=== PATIENT | female | born 1985 | race African-American/Black ===

== ENCOUNTER 2018-01-09 16:10 | Emergency (ER) | payer OTHER ==
[~2018-01-09] VITALS: Ht 160 cm; Wt 67.6 kg
[~2018-01-09 16:10] MED LIST: PREN-58 PO
[2018-01-09 16:11] VITALS: BP 114/60
== END 2018-01-09 16:51 | disposition home or self-care (01) ==
LOC: ER 16:14
DX: D17.1 Benign lipomatous neoplasm of skin and subcutaneous tissue of trunk (principal)
CPT/HCPCS: A4606; Z7502; Z7610

== ENCOUNTER 2019-07-17 18:51 | Emergency (ER) | payer OTHER ==
[~2019-07-17] VITALS: Ht 160 cm; Wt 66.7 kg
[2019-07-17 19:31] LABS: BASOPHILS % (AUTO) 0.4 % (0.0-2.0); EOSINOPHILS % (AUTO) 0.8 % (0.0-6.0); HEMATOCRIT 36 % (33-45); HEMOGLOBIN 11.7 g/dL (11.5-14.8); LYMPHOCYTES # (AUTO) 1.9 /CMM (0.8-4.8); LYMPHOCYTES % (AUTO) 24.3 % (20.0-44.0); MEAN CORPUSCULAR HGB CONC 33 g/dl (31.0-36.0); MEAN CORPUSCULAR VOLUME 91 fL (82-100); MONOCYTES # (AUTO) 0.7 /CMM (0.1-1.30); MONOCYTES % (AUTO) 9.2 % (2.0-12.0); NEUTROPHILS % (AUTO) 65.3 % (43.0-81.0); PLATELET COUNT (AUTO) 249 /CMM (150-450); WHITE BLOOD COUNT (AUTO) 7.7 K/uL (4.3-11.0)
[2019-07-17 19:39] LABS: CALCIUM, SERUM 9.3 mg/dL (8.5-10.1); CREATININE 0.5 mg/dL (0.6-1.3); POTASSIUM 3.9 mmol/L (3.5-5.1)
--- NOTE | 2019-07-17 19:47 | NUR ---
PT BIB BY SELF FOR SOB., THAT SHE NEEDS TO EXERT HERSELF TO BREATH. PT IS 7 PARA 1. UPON ASSESSMENT, PT DESCRIBES CRUSHING PAIN SINCE THIS MORNING. BREATHING EVEN AND UNLABORED. PT O2 SAT AT 100%. NOT IN ANY DISTRESS. WILL CONTINUE TO MONITOR.
--- NOTE | 2019-07-17 20:00 | NUR ---
PT RECEIVED FROM [facility] FOR [facility]. PT IN BED AAOX4. NO RESP DISTRESS NOTED BUT STILL C/O OF CHEST PRESSURE. AWARE
--- NOTE | 2019-07-17 22:03 | NUR ---
Patient discharged to home in stable condition. Written and verbal after care instructions given. Patient verbalizes understanding of instruction. Pt ambulatory with a steady gait
[2019-07-17 22:05] VITALS: BP 100/62
--- NOTE | 2019-07-17 22:45 | NUR ---
Note bobbi in EDM - 07/17/19 at 2345 by ALFREDO Patient discharged to home in stable condition. Written and verbal after care instructions given. Patient verbalizes understanding of instruction. Pt ambulatory with a steady gait IV removed. Catheter intact and site benign. Pressure and 4x4 applied to site. No bleeding noted.
== END 2019-07-17 22:05 | disposition home or self-care (01) ==
LOC: ER 18:53
DX: O99.511 Diseases of the respiratory system complicating pregnancy, first trimester (principal); R06.02 Shortness of breath; Z3A.08 8 weeks gestation of pregnancy
CPT/HCPCS: 36415; 76805-TC; 80048-TC; 84484-TC; 84702-TC; 85025-TC